=== PATIENT | female | born 1970 | race Caucasian/White ===

== ENCOUNTER → 2017-12-05 | Outpatient (CLI) | payer OTHER ==
[~2017-12-05] MED LIST: IOPAMIDOL (ISOVUE-300) 100 ML BTL ONE
== END ==
LOC: FIMAGING 14:08
PROVIDERS: ATTEND Internal Medicine Endocrinology, Diabetes & Metabolism
DX: C73 Malignant neoplasm of thyroid gland (principal); R59.9 Enlarged lymph nodes, unspecified; M89.9 Disorder of bone, unspecified
CPT/HCPCS: Q9967

== ENCOUNTER → 2017-12-19 | Outpatient (CLI) | payer OTHER | LOC: FIMAGING 12:46 | PROVIDERS: ATTEND Family Medicine | DX: N63.14 Unspecified lump in the right breast, lower inner quadrant (principal); N63.12 Unspecified lump in the right breast, upper inner quadrant ==

== ENCOUNTER → 2018-01-01 | Outpatient (CLI) | payer OTHER ==
[~2018-01-01] MED LIST changes: +BUPIVACAINE 0.5% 30 ML SDV ONE; -IOPAMIDOL (ISOVUE-300) 100 ML BTL ONE; +LIDOCAINE 1% 300 MG/30 ML SDV ONE; +THROMBIN (BOVINE) 5,000 UNIT VIAL TP ONE
== END ==
LOC: FIMAGING 07:23
PROVIDERS: ATTEND Family Medicine
PROC: 0HBT3ZX Excision of Right Breast, Percutaneous Approach, Diagnostic (ICD-10-PCS; principal; 2018-01-01)
DX: D05.11 Intraductal carcinoma in situ of right breast (principal)

== ENCOUNTER → 2018-01-27 | Outpatient (CLI) | payer OTHER ==
[~2018-01-27] MED LIST changes: -BUPIVACAINE 0.5% 30 ML SDV ONE; +GADOBUTROL 10 ML VIAL IVP ONE; -LIDOCAINE 1% 300 MG/30 ML SDV ONE; -THROMBIN (BOVINE) 5,000 UNIT VIAL TP ONE
== END ==
LOC: FIMAGING 10:43
PROVIDERS: ATTEND Physician Assistant
DX: C50.911 Malignant neoplasm of unspecified site of right female breast (principal)
CPT/HCPCS: 0159T; 77059; A9585; C8908

== ENCOUNTER → 2018-05-30 | Outpatient (CLI) | payer OTHER | LOC: FIMAGING 12:11 | DX: C50.311 Malignant neoplasm of lower-inner quadrant of right female breast (principal) ==

== ENCOUNTER → 2018-07-17 | Outpatient (CLI) | payer OTHER | LOC: FIMAGING 12:04 | DX: C50.911 Malignant neoplasm of unspecified site of right female breast (principal) ==

== ENCOUNTER → 2018-09-03 | Outpatient (CLI) | payer OTHER | LOC: FIMAGING 08:48 ==